=== PATIENT | male | born 1960 | race Caucasian/White ===

== ENCOUNTER 2019-01-16 09:31 | Emergency (ER) | payer OTHER ==
[~2019-01-16] VITALS: Ht 172.7 cm; Wt 85.2 kg
[2019-01-16] MEDS ORDERED: ibuprofen tablet 400 MG TABLET PO ONE (10:00)
[2019-01-16] MEDS ORDERED: HYDROcodone/acetaminophen 10/325mg tab PO ONE (10:25)
--- NOTE | 2019-01-16 10:37 | NUR ---
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
[2019-01-16] MEDS ORDERED: HYDR-4353 PO (11:15)
[2019-01-16] MEDS ORDERED: IBUP-1984 PO (11:15)
[2019-01-16 11:27] VITALS: BP 149/80
== END 2019-01-16 11:29 | disposition home or self-care (01) ==
LOC: ER 09:32
DX: S82.51XA Displaced fracture of medial malleolus of right tibia, initial encounter for closed fracture (principal); Z79.899 Other long term (current) drug therapy; W21.02XA Struck by soccer ball, initial encounter; Y93.66 Activity, soccer; Y92.89 Other specified places as the place of occurrence of the external cause; Y99.8 Other external cause status
CPT/HCPCS: 29515; 73564; 73610; 73630; 99283

== ENCOUNTER 2019-01-22 15:51 | Outpatient (CLI) | payer OTHER ==
[~2019-01-22] VITALS: Ht 175.3 cm; Wt 90.5 kg
[2019-01-22 15:46] VITALS: BP 163/82
[~2019-01-22 15:51] MED LIST: HYDR-4353 PO; IBUP-1984 PO
== END 2019-01-22 17:00 | disposition home or self-care (01) ==
LOC: ORTHO 15:51
PROVIDERS: ATTEND Orthopaedic Surgery
DX: S82.892A Other fracture of left lower leg, initial encounter for closed fracture (principal); X50.1XXA Overexertion from prolonged static or awkward postures, initial encounter; W19.XXXA Unspecified fall, initial encounter; Y93.89 Activity, other specified; Y92.89 Other specified places as the place of occurrence of the external cause; Y99.8 Other external cause status
CPT/HCPCS: G0463

== ENCOUNTER 2019-02-06 09:28 | Day surgery (SDC) | payer OTHER, SELFPAY ==
[2019-01-31 10:38] LABS: BASOPHILS # (AUTO) 0.1 X10'3 (0-0.2); BASOPHILS % (AUTO) 1.1 % (0-1); EOSINOPHILS # (AUTO) 0.1 X10'3 (0-0.9); EOSINOPHILS % (AUTO) 1.6 % (0-6); LYMPHOCYTES # (AUTO) 1.4 X10'3 (1.1-4.8); LYMPHOCYTES % (AUTO) 23.1 % (21-51); MEAN CORPUSCULAR HEMOGLOBIN 30.7 PG (27.0-31.0); MEAN CORPUSCULAR HGB CONC 34.5 g/dL (33.0-36.5); MEAN CORPUSCULAR VOLUME 88.9 FL (78-98); MEAN PLATELET VOLUME 7.9 FL (7.4-10.4); MONOCYTES # (AUTO) 0.4 X10'3 (0-0.9); MONOCYTES % (AUTO) 5.7 % (2-12); NEUTROPHILS # (AUTO) 4.2 X10'3 (1.8-7.7); NEUTROPHILS % (AUTO) 68.5 % (42-75); PRE OP HEMOGLOBIN 13.1 g/dL (14.0-17.9); PRE OP PLATELET COUNT 369 X10'3 (140-440); RED BLOOD COUNT 4.27 X10'6 (4.70-6.10); RED CELL DISTRIBUTION WIDTH 13.6 % (11.5-14.5)
[2019-01-31 11:09] LABS: ALBUMIN 3.7 G/DL (3.4-5.0); ALKALINE PHOSPHATASE 117 IU/L (46-116); BLOOD UREA NITROGEN 16 MG/DL (7-18); CALCIUM 8.8 MG/DL (8.5-10.1); CHLORIDE 105 MMOL/L (99-107); CREATININE 0.89 MG/DL (0.60-1.10); PRE OP ALT 33 U/L (30-65); PRE OP ANION GAP 6 (8-16); PRE OP AST 14 U/L (10-37); PRE OP BILIRUB, TOTAL 0.8 MG/DL (0.0-1.0); PRE OP GLUCOSE 92 MG/DL (70-104); PRE OP SODIUM 140 MMOL/L (135-145); TOTAL PROTEIN 7.5 G/DL (6.4-8.2); eGFR 88 ML/MIN
[2019-02-06] VITALS (9 sets, daily range): BP systolic 151–161; BP diastolic 82–98
[~2019-02-06] VITALS: Ht 177.8 cm; Wt 90.0 kg
[~2019-02-06 09:28] MED LIST changes: +ACET-812 PO; +CLON-528 PO; -HYDR-4353 PO; -IBUP-1984 PO; +IBUP-24 PO
[2019-02-06] MEDS ORDERED: famotidine 20mg tablet PO ONE (09:45)
[2019-02-06] MEDS ORDERED: ringers solution, lacted 1,000 ML IV SCH ×2 (09:45→11:43)
[2019-02-06] MEDS ORDERED: cefazolin/dext.iso 2gm/100 ML IV ONE (09:45)
[2019-02-06] MEDS ORDERED: VANCOMYCIN 1,500MG inj. 1,500 MG in normal saline 250ml IV soln 280 ML IV ONE (09:45)
[2019-02-06] MEDS ORDERED: ceFAZolin 1000mg inj ONE (10:09)
[2019-02-06] MEDS ORDERED: BUPIVAcaine/PF 2.5 mg/ml (0.25%) 30ml vial ONE (10:09)
[2019-02-06] MEDS ORDERED: ROPIVAcaine 0.5% (5mg/ml) 30ml vial ONE (10:59)
[2019-02-06] MEDS ORDERED: propofol inj 20 ML IV ONE (11:38)
[2019-02-06] MEDS ORDERED: midazolam 2 mg/2 ml injection ONE (11:38)
[2019-02-06] MEDS ORDERED: fentaNYL/PF 50MCG/1 ML 2ML syringe ONE ×2 (11:38→12:25)
[2019-02-06] MEDS ORDERED: LIDOcaine 2% (20mg/ml) 5ml vial ONE (11:38)
[2019-02-06] MEDS ORDERED: dexamethasone sod phosphate 4mg/ml inj. ONE (11:40)
[2019-02-06] MEDS ORDERED: ondansetron/PF 4mg/2ml inj ONE (11:40)
[2019-02-06] MEDS ORDERED: sevoflurane 250ml liquid IH ONE (11:41)
[2019-02-06] MEDS ORDERED: morphine 4 MG/ML inj SYRINge IV PRN ×2 (11:45)
[2019-02-06] MEDS ORDERED: labetalol 20mg/4ml (5mg/ml) syringe IV PRN (11:45)
[2019-02-06] MEDS ORDERED: ondansetron/PF 4mg/2ml inj IV PRN (11:45)
[2019-02-06] MEDS ORDERED: hydrALAZINE 20mg/ml inj. IV PRN (11:45)
[2019-02-06] MEDS ORDERED: fentaNYL/PF 50MCG/1 ML 2ML syringe IV PRN ×2 (11:45)
--- NOTE | 2019-02-06 13:29 | NUR ---
Received from OR via , accompanied by Anesthesiologist DR HAYNES and report given by Anesthesiolgist. AWAKE AND C/O SEVERE RT ANKLE PAIN. WILL MEDICATE. VITALS STABLE. SPLINT DI.
[2019-02-06] MEDS ORDERED: HYDROcodone/acetaminophen 10/325mg tab PO PRN (14:30)
--- NOTE | 2019-02-06 14:49 | NUR ---
AWAKE AND ORIENTED. VITALS STABLE. DRESSING DI. STATES PAIN IMPROVING. HOME WITH FRIENDS AT THIS TIME.
== END 2019-02-06 14:49 | disposition home or self-care (01) ==
LOC: PAS 09:28
PROVIDERS: ATTEND Orthopaedic Surgery
DX: S82.51XA Displaced fracture of medial malleolus of right tibia, initial encounter for closed fracture (principal); S93.439A Sprain of tibiofibular ligament of unspecified ankle, initial encounter; G89.18 Other acute postprocedural pain; F41.9 Anxiety disorder, unspecified; X58.XXXA Exposure to other specified factors, initial encounter; Y93.89 Activity, other specified; Y92.89 Other specified places as the place of occurrence of the external cause; Y99.8 Other external cause status; I10 Essential (primary) hypertension; Z98.49 Cataract extraction status, unspecified eye; Z87.891 Personal history of nicotine dependence; Z79.899 Other long term (current) drug therapy
CPT/HCPCS: 27766; 27829; 36415; 64447; 80053; 82948; 85025; 93005; C1713; J0690; J1100; J2001; J2250; J2270; J2405; J2704; J3010; J3370; J3490; J7030; J7120; A6449; A7000; J2795

== ENCOUNTER 2019-05-08 08:40 | Outpatient (CLI) | payer SELFPAY ==
[2019-05-08 08:40] VITALS: BP 157/96
== END 2019-05-08 09:15 | disposition home or self-care (01) ==
LOC: ORTHO 08:40
PROVIDERS: ATTEND Orthopaedic Surgery
DX: S82.51XD Displaced fracture of medial malleolus of right tibia, subsequent encounter for closed fracture with routine healing (principal); S82.61XD Displaced fracture of lateral malleolus of right fibula, subsequent encounter for closed fracture with routine healing; M85.88 Other specified disorders of bone density and structure, other site; I10 Essential (primary) hypertension; X58.XXXD Exposure to other specified factors, subsequent encounter
CPT/HCPCS: 73610; G0463